=== PATIENT | female | born 1980 | race American Indian/Alaskan Native ===

== ENCOUNTER 2019-11-14 06:04 | Day surgery (SDC) | payer BC ==
--- NOTE | 2019-11-13 19:09 | Short Stay Summary ---
Short Stay Documentation Date of service: 11/14/19 - History H&P: obtained from office - Allergies and Medications Current Medications: Allergies No Known Allergies Allergy (Verified 11/10/19 17:05) Home Medications Medication Instructions Recorded Confirmed Last Taken Type Ibuprofen [Motrin] 600 mg PO Q8H PRN 11/10/19 11/10/19 Unknown History Multivit-Min/Iron/Folic/Lutein 1 each PO DAILY 11/10/19 11/10/19 Unknown History [Centrum Silver Women Tablet] Active Medications Acetaminophen (Tylenol) 1,000 mg PO PREOP ONE Stop: 11/14/19 06:01 Celecoxib (Celebrex) 200 mg PO PREOP NR Gabapentin (Gabapentin) 300 mg PO PREOP NR Lactated Ringer's (Lactated Ringers) 1,000 mls @ 100 mls/hr IV DIRECT BRI Stop: 11/14/19 23:59 Cefazolin Sodium 2 gm/ Sodium (Chloride) 100 mls @ 200 mls/hr IV PREOP ONE; Protocol Stop: 11/14/19 06:29 Midazolam HCl (Versed) 2 mg IV PREOP NR Stop: 11/14/19 23:59 - Physical exam General appearance: no acute distress HEENT: Atraumatic Lungs: Normal air movement Neurological: Normal speech - Brief post op/procedure progress note Date of procedure: 11/14/19 (dictation:[id number]) Pre-op diagnosis: back soft tissue mass Post-op diagnosis: same Procedure: excision of back soft tissue mass IVF 900cc EBL min Anesthesia: GETA Findings: 1 x 3 x 4cm lipomatous mass Surgeon: HIPOLITO LUNDBERG Estimated blood loss: minimal Pathology: list (lipomatous mass) Specimen disposition: to lab Condition: stable - Disposition Condition at discharge: Stable Disposition: DC-01 TO HOME OR SELFCARE Short Stay Discharge Plan Activity: advance as tolerated, avoid flexion Diet: regular Wound: open to air, keep clean and dry Special Instructions: no heavy lifting Additional Instructions: Post Operative Instructions Activity: No heavy lifting for next 1 week. Avoid bending. Wound: Keep clean and dry do not cover with gauze tape or band aid. May shower tomorrow. Pat dry the wound Diet : After surgery, start with a light diet. Consider starting with liquids. If you do well, you can advance to a regular diet as you feel comfortable. Apply an ice pack to the wound or wounds for 10-20 minutes at a time. Do this at least 4-5 times a day. You can do it more if he would like. Pain Medication Schedule for the first 2 days after surgery: Gabapentin 300mg twice a day Tylenol 500mg four times a day (every 6 hours) Celebrex 200mg twice a day After the first 2 days, then take alternating doses of ibuprofen and Tylenol as needed for pain. Take 600 mg of ibuprofen every 6 hours as needed. Take 500 mg of Tylenol every 6 hours as needed. You should alternate these 2 medicines. Make sure you take the ibuprofen with food. It is very important that you use the prescription narcotic pain medicine (hydrocodone) only for very severe pain. Do not take the narcotic medicine before you try using all the medications listed above. We will call you in a couple of days to see how youre doing. If you have any questions or concerns, always feel free to call the clinic ([phone]) at any time. Follow up with: EDENILSON DEJESUS MD [Primary Care Provider] - 7 Days HIPOLITO LUNDBERG MD [Staff Physician] - 14 Days Forms: Outpatient Surgery DC Inst. Prescriptions: Celecoxib [celeBREX] 200 mg PO BID #4 capsule Gabapentin 300 mg PO BID #4 capsule HYDROcodone/APAP 5-325 [Harvey 5-325 mg TAB] 1 each PO Q6HR PRN #8 tablet PRN Reason: Pain , Severe (7-10)
[~2019-11-14 06:04] MED LIST: ACETAMINOPHEN 500 MG TAB PO ONE; CELECOXIB 200 MG CAP PO NR; GABAPENTIN 300 MG CAP PO NR; LACTATED RINGERS 1,000 ML IV SCH; MIDAZOLAM 2 MG/2 ML INJ IV NR
[2019-11-14] MEDS ORDERED: BACTERIOSTATIC SODIUM CHLORIDE 0.9% 30 ML VIAL INFILTRATI ONE (06:12)
--- NOTE | 2019-11-14 07:21 | Anesthesia Day of Surgery ---
Anesthesia Day of Surgery - Day of Surgery Patient Examined: Yes Patient H&P Reviewed: Yes Patient is NPO: Yes
--- NOTE | 2019-11-14 07:21 | Anesthesia Consultation ---
Anesthesia Consult and Med Hx Date of service: 11/14/19 - Airway Anesthetic Teeth Evaluation: Good ROM Head & Neck: Adequate Mental/Hyoid Distance: Adequate Mallampati Class: Class II Intubation Access Assessment: Good - Pulmonary Exam CTA: Yes - Cardiac Exam Cardiac Exam: RRR - Pre-Operative Health Status ASA Pre-Surgery Classification: ASA1 Proposed Anesthetic Plan: General - Pulmonary Hx Smoking: No Hx Sleep Apnea: No (NINA PRE SCREEN NEGATIVE) - Cardiovascular System Hx Hypertension: No - Hematic Hx Anemia: No - Other Systems Hx Cancer: No
[2019-11-14] MEDS ORDERED: fentaNYL 100 MCG/2 ML INJ IV PRN (07:28)
[2019-11-14] MEDS ORDERED: ONDANSETRON 4 MG/2 ML INJ IV PRN (07:28)
[2019-11-14] MEDS ORDERED: SUCCINYLCHOLINE CHLORIDE 200 MG/10 ML INJ MDV ONE (07:28)
[2019-11-14] MEDS ORDERED: propofoL 200 MG/20 ML VIAL IV ONE (07:29)
[2019-11-14] MEDS ORDERED: fentaNYL 100 MCG/2 ML INJ ONE (07:29)
[2019-11-14] MEDS ORDERED: BUPIVACAINE-EPINEPHRINE/PF 0.5%-1:200,000 (30 ML) VIAL INFILTRATI ONE ×2 (07:30→08:07)
[2019-11-14] MEDS ORDERED: ceFAZolin/Water 2 GM/20 ML 2 GM/20 ML SYRINGE IV NR (07:30)
[2019-11-14] MEDS ORDERED: LIDOCAINE (1%) 10 MG/1 ML VIAL 20 ML MDV ONE (07:30)
[2019-11-14] MEDS ORDERED: SODIUM CHLORIDE 0.9% IRR 1,500 ML BOTTLE IR ONE (08:07)
[2019-11-14] MEDS ORDERED: LIDOCAINE (1%) 10 MG/1 ML VIAL 20 ML MDV INFILTRATI ONE (08:07)
[2019-11-14] MEDS ORDERED: ONDANSETRON 4 MG/2 ML INJ ONE (08:18)
[2019-11-14] MEDS ORDERED: dexAMETHasone 20 MG/5 ML VIAL ONE (08:18)
[2019-11-14] MEDS ORDERED: KETOROLAC 30 MG/1 ML INJ ONE (08:30)
[2019-11-14 10:15] VITALS: BP 124/78
--- NOTE | 2019-11-14 10:34 | Post Anesthesia Evaluation ---
- Post Anesthesia Evaluation Patient Participated: Yes Airway Patent: Yes Stable Respiratory Function: Yes Nausea/Vomiting: No Temp > 96.8F: Yes Pain Manageable: Yes Adequeate Hydration: Yes Anesthesia Complications: No
--- NOTE | 2019-11-14 13:25 | Operative Report ---
PREOPERATIVE DIAGNOSIS: Back soft tissue mass. POSTOPERATIVE DIAGNOSIS: Back soft tissue mass. PROCEDURE: Excision of back soft tissue mass. ATTENDING PHYSICIAN: Caroline De La Rosa MD ANESTHESIA: General. ESTIMATED BLOOD LOSS: Minimal. FLUIDS: 900 mL. FINDINGS: 1 x 3 x 4 cm lipomatous mass in the low back. No abnormal surrounding tissue. SPECIMENS: Above-mentioned mass. DRAINS: None. COMPLICATIONS: None. DISPOSITION: Stable, transferred to Recovery Room. INDICATIONS: This is a 39-year-old female who presented to the office with complaints of a low back mass that had been increasing in size over the years. The patient is concerned about the increase in size. The patient is assessed to be in need for excision. Procedure, risks, benefits were explained to the patient. Risks include but were not limited to infection, bleeding, pain, injury to surrounding structures, possible need for further procedures in the future. The patient understood and consented. OPERATIVE NOTE: The patient was brought to the operating room and placed on the table in supine position. After adequate general anesthesia was established, the patient was placed in the prone position. All pressure points were padded. Sterile prep and drape was done. SCDs were in place. Antibiotics have been given. Time-out was called. I began by marking out our planned incision along the lines of skin tension. Local anesthetic was injected. Skin was incised. We dissected down through the initial top layer of subcutaneous tissue to the mass. The mass was dissected from the surrounding tissue. It was within the subcutaneous space. There was no involvement of the underlying fascia. Mass was measured and passed off table in sterile fashion. Hemostasis was achieved with electrocautery. Additional local was injected. Deep layer of tissue was closed with interrupted 3-0 Vicryl sutures. Skin was closed with a running 4-0 Monocryl subcuticular stitch. Skin was cleaned and dried. Dermabond was placed. The patient tolerated the procedure well. There were no complications. All counts were correct at the end of the case. JOB# [id number] LISANDRO/TERRY
== END 2019-11-14 06:05 | disposition home or self-care (01) ==
LOC: OR 06:04
PROVIDERS: ATTEND Surgery
DX: D17.1 Benign lipomatous neoplasm of skin and subcutaneous tissue of trunk (principal); M79.89 Other specified soft tissue disorders; Z11.59 Encounter for screening for other viral diseases; Z79.899 Other long term (current) drug therapy; Z90.721 Acquired absence of ovaries, unilateral
CPT/HCPCS: 21931; 81025; 88304; J0330; J0690; J1100; J1885; J2250; J2405; J2704; J3010; J7120; U0003; 88307

== ENCOUNTER 2020-06-26 16:50 | Emergency (ER) | payer BC ==
[2020-06-26 16:57] VITALS: BP 148/88
--- NOTE | 2020-06-26 17:42 | Emergency Department Report ---
ED Head Trauma HPI - General Chief complaint: Head Injury Stated complaint: HEAD INJURY/WORK INJURY Source: patient Mode of arrival: Ambulatory Limitations: No Limitations - History of Present Illness Initial comments: 40-year-old female presents to the ER today for evaluation for head injury. Patient states that she works at [employer], and the Plexiglas that separates the registers fell over and struck her on the right side of her head. She states that this occurred today around 4 PM. She states that she felt dazed but did not lose consciousness. She complains of diffuse head pressure. She denies any neck pain. She denies any nausea or vomiting. She reports no focal weakness, numbness, or tingling. She is not on any blood thinners. She has not taken anything for pain since the incident occurred. She reports no other symptoms at this time. MD Complaint: head injury -: Sudden - Related Data Home Medications Medication Instructions Recorded Confirmed Last Taken Multivit-Min/Iron/Folic/Lutein 1 each PO DAILY 11/10/19 11/14/19 11/12/19 [Centrum Silver Women Tablet] Previous Rx's Medication Instructions Recorded Last Taken Type Celecoxib [celeBREX] 200 mg PO BID #4 capsule 11/14/19 Unknown Rx Gabapentin 300 mg PO BID #4 capsule 11/14/19 Unknown Rx Naproxen [EC-Naprosyn] 500 mg PO Q12HR PRN #20 tablet. 06/26/20 Unknown Rx Allergies/Adverse reactions: Allergies Allergy/AdvReac Type Severity Reaction Status Date / Time No Known Allergies Allergy Verified 11/10/19 17:05 ED Review of Systems ROS: Stated complaint: HEAD INJURY/WORK INJURY Other details as noted in HPI Comment: All other systems reviewed and negative Eyes: denies: eye pain, eye discharge, vision change ENT: denies: ear pain, throat pain, dental pain, hearing loss, epistaxis, congestion Respiratory: denies: cough, orthopnea, shortness of breath, SOB with exertion, SOB at rest, stridor, wheezing Cardiovascular: denies: chest pain, palpitations, dyspnea on exertion, edema, syncope, paroxysmal nocturnal dyspnea Gastrointestinal: denies: abdominal pain, nausea, vomiting, diarrhea, constipation, hematemesis, melena, hematochezia Genitourinary: denies: urgency, dysuria, frequency, hematuria, discharge Neurological: headache, other (Positive head injury, negative LOC). denies: weakness, numbness, paresthesias, confusion, abnormal gait, vertigo Psychiatric: denies: anxiety, depression Hematological/Lymphatic: denies: easy bleeding, easy bruising ED Past Medical Hx - Past Medical History Hx Hypertension: No Hx HIV: No - Social History Smoking Status: Never Smoker - Medications Home Medications: Home Medications Medication Instructions Recorded Confirmed Last Taken Type Multivit-Min/Iron/Folic/Lutein 1 each PO DAILY 11/10/19 11/14/19 11/12/19 History [Centrum Silver Women Tablet] Celecoxib [celeBREX] 200 mg PO BID #4 capsule 11/14/19 Unknown Rx Gabapentin 300 mg PO BID #4 capsule 11/14/19 Unknown Rx Naproxen [EC-Naprosyn] 500 mg PO Q12HR PRN #20 tablet. 06/26/20 Unknown Rx ED Physical Exam - General Limitations: No Limitations General appearance: alert, in no apparent distress - Head Head exam: Present: normocephalic, other (Mild swelling, and very superficial laceration noted on the right temporal area with tenderness to palpation. No active bleeding or deformity noted) - Eye Eye exam: Present: normal appearance, PERRL, EOMI Pupils: Present: normal accommodation - ENT ENT exam: Present: normal exam, mucous membranes moist, TM's normal bilaterally - Neck Neck exam: Present: normal inspection, full ROM. Absent: tenderness - Respiratory Respiratory exam: Present: respiratory distress. Absent: normal lung sounds bilaterally - Cardiovascular Cardiovascular Exam: Present: regular rate, normal rhythm, normal heart sounds - Neurological Exam Neurological exam: Present: alert, oriented X3, CN II-XII intact, normal gait ED Course Vital Signs 06/26/20 16:55 Temperature 98.8 F Pulse Rate 73 Respiratory 18 Rate Blood Pressure 148/88 O2 Sat by Pulse 100 Oximetry - Radiology Data Radiology results: report reviewed Patient: JONES SAMUELS MR#: [id number] : 1980 Acct:[id number] Age/Sex: 40 / F ADM Date: 06/26/20 Loc: ED Attending Dr: Ordering Physician: HILLARY GRIFFITH Date of Service: 06/26/20 Procedure(s): CT head/brain wo con Accession Number(s): [id number] cc: HILLARY GRIFFITH CT head/brain wo con INDICATION / CLINICAL INFORMATION: 40 years Female; trauma. TECHNIQUE: Routine CT head without contrast. All CT scans at this location are performed using CT dose reduction for ALARA by means of automated exposure control. COMPARISON: None. FINDINGS: BRAIN / INTRACRANIAL CONTENTS: No acute hemorrhage, mass effect, midline shift, hydrocephalus, or acute, large territorial infarct. No signs of significant atrophy or chronic infarct. No significant white matter abnormality seen. CRANIOCERVICAL JUNCTION: No significant abnormality. ORBITS: No significant abnormality of visualized orbits. SINUSES / MASTOIDS: Minimal mucosal thickening in the ethmoids. ADDITIONAL FINDINGS: None. IMPRESSION: 1. No focal mass, hemorrhage, hydrocephalus, or acute, large territorial infarct. Signer Name: Joseph Wade MD, III Signed: 06/26/2020 6:31 PM Workstation Name: [id number] Transcribed By: HR Dictated By: Joseph Wade MD Electronically Authenticated By: Joseph Wade MD Signed Date/Time: 06/26/201830 DD/ 29 TD/TT: - Medical Decision Making CT head shows nothing acute. Patient is awake, alert and oriented x3. She is neurologically intact. She remembers the incident fully. She has a normal gait in the ER. Discussed CT results with patient. No indication for further testing, admission or emergent consult at this time. Discussed diagnosis and treatment plan with patient. She expressed understanding of instructions and agree with plan. Patient stable at time of discharge. Critical care attestation.: If time is entered above; I have spent that time in minutes in the direct care of this critically ill patient, excluding procedure time. ED Disposition Clinical Impression: Head injury, closed, without LOC, Forehead contusion Disposition: DC-01 TO HOME OR SELFCARE Is pt being admited?: No Does the pt Need Aspirin: No Condition: Stable Instructions: Facial or Scalp Contusion, [id number] Additional Instructions: Take the Naproxen as prescribed for pain. Follow up with PCP in 1 week. Return to ED if your symptoms worsens or changes in any way. Prescriptions: Naproxen [EC-Naprosyn] 500 mg PO Q12HR PRN #20 tablet.dr ROSALES Reason: Pain Referrals: NICANOR FLOWERS MD [Staff Physician] - 7-10 days Forms: Work/School Release Form(ED) Time of Disposition: 19:10
[2020-06-26] MEDS ORDERED: ACETAMINOPHEN 325 MG TAB PO ONE (17:45)
--- NOTE | 2020-06-26 18:35 | Cat Scan Report ---
CT head/brain wo con INDICATION / CLINICAL INFORMATION: 40 years Female; trauma. TECHNIQUE: Routine CT head without contrast. All CT scans at this location are performed using CT dos e reduction for ALARA by means of automated exposure control. COMPARISON: None. FINDINGS: BRAIN / INTRACRANIAL CONTENTS: No acute hemorrhage, mass effect, midline shift, hydrocephalus, or acu te, large territorial infarct. No signs of significant atrophy or chronic infarct. No significant whi te matter abnormality seen. CRANIOCERVICAL JUNCTION: No significant abnormality. ORBITS: No significant abnormality of visualized orbits. SINUSES / MASTOIDS: Minimal mucosal thickening in the ethmoids. ADDITIONAL FINDINGS: None. IMPRESSION: 1. No focal mass, hemorrhage, hydrocephalus, or acute, large territorial infarct. Signer Name: Joseph Wade MD, III Signed: 06/26/2020 6:31 PM Workstation Name: [id number]
== END 2020-06-26 20:00 | disposition home or self-care (01) ==
LOC: ED 16:50
DX: S00.83XA Contusion of other part of head, initial encounter (principal); S09.90XA Unspecified injury of head, initial encounter; Z79.899 Other long term (current) drug therapy; W18.30XA Fall on same level, unspecified, initial encounter; Y93.89 Activity, other specified; Y92.89 Other specified places as the place of occurrence of the external cause; Y99.0 Civilian activity done for income or pay
CPT/HCPCS: 70450

== ENCOUNTER 2021-02-09 14:53 | Outpatient (CLI) | payer BC ==
[2021-02-09 15:31] LABS: Hematocrit 43.5 % (30.3-42.9); Hemoglobin 13.6 gm/dl (10.1-14.3); Mean Corpuscular HGB Conc 31 % (30-34); Mean Corpuscular Volume 94 fl (79-97); Platelet Count 282 K/mm3 (140-440); Red Blood Count 4.64 M/mm3 (3.65-5.03)
[2021-02-09 15:45] LABS: Alanine Aminotransferase 9 units/L (7-56); Albumin 4.1 g/dL (3.9-5); Blood Urea Nitrogen 9 mg/dL (7-17); Calcium 8.8 mg/dL (8.4-10.2); Chol/HDL Ratio 3.63 %; HDL Cholesterol 46 mg/dL (40-59); Hemolysis Index 14; LDL Cholesterol,Direct 100 mg/dL (50-130)
[2021-02-09 15:51] LABS: BUN/Creatinine Ratio 15
[2021-02-09 18:50] LABS: Hepatitis C Virus Antibody Non-Reactive (NonReactive)
== END 2021-02-09 14:54 | disposition home or self-care (01) ==
LOC: LAB 14:53
PROVIDERS: ATTEND Obstetrics & Gynecology
DX: Z11.3 Encounter for screening for infections with a predominantly sexual mode of transmission (principal); Z13.1 Encounter for screening for diabetes mellitus; Z13.21 Encounter for screening for nutritional disorder; Z13.220 Encounter for screening for lipoid disorders
CPT/HCPCS: 36415; 80053; 80061; 82306; 83036; 84443; 85027; 86592; 86689; 86803; 87350; 87529

== ENCOUNTER 2021-02-15 11:05 | Outpatient (CLI) | payer BC ==
--- NOTE | 2021-02-16 06:42 | Ultrasound Report ---
ULTRASOUND PELVIS INDICATION / CLINICAL INFORMATION: PELVIC MASS. TECHNIQUE: Transabdominal. Duplex Color Doppler used: Yes. COMPARISON: None available FINDINGS: UTERUS: The uterus measures 7.1 x 2.7 x 5.8 cm. Uterus is heterogeneous with multiple hypoechoic ricardo metrial masses, most compatible with fibroids. The endometrial stripe measures 0.6 cm. RIGHT ADNEXA: Large cystic structure is present within the right ovary, measuring 8.9 cm. There are d iffuse homogeneous groundglass echoes throughout this structure. Normal right ovarian Doppler flow is present. LEFT ADNEXA: Not visualized, reported to be surgically absent. URINARY BLADDER: No significant abnormality. FREE FLUID: None. ADDITIONAL FINDINGS: None. IMPRESSION: 1. Fibroid uterus. 2. 8.9 cm cystic structure with diffuse homogeneous groundglass echoes. This may reflect an endometri aguilar or complex cyst. Recommend nonemergent gynecology consultation for further evaluation. 3. No evidence of right ovarian torsion. Left ovary is absent. Signer Name: Abhishek Navarro MD Signed: 02/16/2021 6:37 AM Workstation Name: [id number]
== END 2021-02-15 11:06 | disposition home or self-care (01) ==
LOC: US 11:05
PROVIDERS: ATTEND Obstetrics & Gynecology
DX: N80.3 Endometriosis of pelvic peritoneum (principal); D25.9 Leiomyoma of uterus, unspecified; R19.00 Intra-abdominal and pelvic swelling, mass and lump, unspecified site
CPT/HCPCS: 76830; 76856

== ENCOUNTER 2021-03-14 10:35 | Outpatient (CLI) | payer BC ==
[2021-03-14 11:32] LABS: Blood Urea Nitrogen 12 mg/dL (7-17); Hemolysis Index 7
[2021-03-14 11:33] LABS: BUN/Creatinine Ratio 17
--- NOTE | 2021-03-14 16:42 | Cat Scan Report ---
CT abdomen pelvis w con INDICATION: PELVIC PERINEAL PAIN omni 300 100 ml. COMPARISON: Ultrasound pelvis 02/15/2001 TECHNIQUE: Abdominal and pelvic CT exam performed. All CT scans at this location are performed using CT dose reduction for ALARA by means of automated exposure control. FINDINGS: CT ABDOMEN and PELVIS: Lung Bases: No significant abnormality. Liver: No significant abnormality. Biliary: No significant abnormality. Spleen: No significant abnormality. Pancreas: No significant abnormality. Adrenals: No significant abnormality. Kidneys: No significant abnormality. Lymphatics: No lymphadenopathy. Vasculature: No significant abnormality. Bowel: No significant abnormality. Pelvis: Large 9 cm homogeneous thin-walled right ovarian lesion with Hounsfield units of approximatel y 20. No septations. No consultations. Osseous Structures: No aggressive osseous lesion. Additional Findings: None IMPRESSION: 1. Persistent 9 cm homogeneous cystic right ovarian lesion, similar to prior ultrasound. Recommend fo llow-up pelvic MRI with IV contrast and/or surgical evaluation. * Reference: J Am Itzel Radiol 2013;10:675-681 Signer Name: Justin Barbosa MD Signed: 03/14/2021 4:38 PM Workstation Name: [id number]
== END 2021-03-14 10:36 | disposition home or self-care (01) ==
LOC: CT 10:35
PROVIDERS: ATTEND Obstetrics & Gynecology
DX: N83.201 Unspecified ovarian cyst, right side (principal); K62.89 Other specified diseases of anus and rectum; R19.03 Right lower quadrant abdominal swelling, mass and lump
CPT/HCPCS: 36415; 74177; 80048; 84702; Q9967

== ENCOUNTER 2021-03-30 12:36 | Outpatient (CLI) | payer BC ==
--- NOTE | 2021-03-30 16:14 | Mammography Report ---
DIGITAL SCREENING MAMMOGRAM WITH CAD, 03/30/2021 CLINICAL INFORMATION / INDICATION: Routine screening mammography. SCREENING MAMMOGRAM TECHNIQUE: Digital bilateral 2D mammography was obtained in the craniocaudal and mediolateral obliqu e projections. This examination was interpreted with the benefit of Computer-Aided Detection analysis . COMPARISON: None FINDINGS: Breast Density: The breasts are heterogeneously dense, which may obscure small masses. No dominant mass, suspicious calcifications, or architectural distortion in either breast. IMPRESSION: No mammographic evidence of malignancy. Follow up recommendation: Routine yearly BI-RADS Category 1: NEGATIVE A "normal" or negative report should not discourage follow up or biopsy of a clinically significant f inding. A written summary of these findings will be mailed to the patient. The patient will be entered into a mammography reporting system which will generate a reminder letter for the patient's next appointmen t at the appropriate interval. The [employer] recommends yearly mammograms starting at age 40 and continuing as l coco as a woman is in good health. Breast MRI is recommended for women with an approximate 20-25% or greater lifetime risk of breast cancer, including women with a strong family history of breast or ova marta cancer or who have been treated for Hodgkin's disease. Signer Name: Magdi Hansen DO Signed: 03/30/2021 4:10 PM Workstation Name: [id number]
== END 2021-03-30 12:37 | disposition home or self-care (01) ==
LOC: MAMMO 12:36
PROVIDERS: ATTEND Obstetrics & Gynecology
DX: Z12.31 Encounter for screening mammogram for malignant neoplasm of breast (principal)
CPT/HCPCS: 77067

== ENCOUNTER 2021-09-22 14:12 | Outpatient (CLI) | payer BC ==
--- NOTE | 2021-09-22 17:12 | Ultrasound Report ---
ULTRASOUND PELVIS INDICATION / CLINICAL INFORMATION: ENDOMETRIOSIS; ABD PAIN. TECHNIQUE: Transabdominal and Transvaginal. Duplex Color Doppler used: Yes. COMPARISON: CT abdomen/pelvis 03/14/2021 and pelvic ultrasound 02/15/2021. FINDINGS: UTERUS: - Appearance: Diffusely heterogeneous. - Size (cm): 6.7 x 4.6 x 3.6 cm. - Endometrial Complex (if present): No significant abnormality.. Thickness in cm (if measured) = 0 - Mass or cyst: Small uterine fibroids appear stable from previous exam. - Additional findings: None. RIGHT ADNEXA: The right ovary measures 7.0 x 5.9 x 6.1 cm. Multiple complex cysts are now visualized in the ovary measuring 3.5 x 3.4 x 3.3 cm and 4.1 x 3.8 x 3.4 cm respectively. Minimally complicated ovarian cyst measuring 3.0 cm. Large cystic structure measuring 8.9 cm seen previously is not identif ied. Normal color Doppler blood flow. LEFT ADNEXA: Solid structure in the left adnexa with the appearance of the left ovary is visualized m easuring 2.1 x 1.3 x 1.1 cm. Simple cyst measuring 1.6 cm. Normal color Doppler blood flow. URINARY BLADDER: No significant abnormality. FREE FLUID: None. ADDITIONAL FINDINGS: None. IMPRESSION: 1. Multiple complex right ovarian cysts measuring up to 4.1 cm. Differential diagnosis includes hemor rhagic ovarian cysts versus endometriomas. Short-term sonographic follow-up is recommended in 6-12 we eks 2. Small uterine fibroids. 3. A structure appearing to be the left ovary is identified with a simple internal cyst measuring 1.6 cm. Scribed by: Evangelina Acevedo RDMS, BETTY, MONTSE Scribed: 09/22/2021 3:40 PM I have reviewed the images, agree with this report, and edited this report as needed. Signer Name: Josr Preciado MD Signed: 09/22/2021 5:07 PM Workstation Name: [id number]
== END 2021-09-22 14:13 | disposition home or self-care (01) ==
LOC: US 14:12
PROVIDERS: ATTEND Family Medicine
DX: N83.202 Unspecified ovarian cyst, left side (principal); N83.201 Unspecified ovarian cyst, right side
CPT/HCPCS: 76830; 76856

== ENCOUNTER 2021-10-10 16:00 | Emergency (ER) | payer BC ==
[2021-10-10 17:04] VITALS: BP 151/93
[2021-10-10 19:03] LABS: Basophils % (Auto) 0.6 % (0.0-1.8); Eosinophils # (Auto) 0.5 K/mm3 (0.0-0.4); Eosinophils % (Auto) 6.5 % (0.0-4.3); Hematocrit 39.7 % (30.3-42.9); Hemoglobin 13.2 gm/dl (10.1-14.3); Lymphocytes # (Auto) 2.9 K/mm3 (1.2-5.4); Lymphocytes % (Auto) 35.1 % (13.4-35.0); Mean Corpuscular HGB Conc 33 % (30-34); Mean Corpuscular Volume 88 fl (79-97); Monocytes # (Auto) 0.4 K/mm3 (0.0-0.8); Monocytes % (Auto) 5.2 % (0.0-7.3); Platelet Count 264 K/mm3 (140-440); Red Cell Distribution Width 13.5 % (13.2-15.2)
[2021-10-10 19:43] LABS: Alanine Aminotransferase 23 units/L (7-56); Albumin 4.3 g/dL (3.9-5); BUN/Creatinine Ratio 11; Blood Urea Nitrogen 8 mg/dL (7-17); Calcium 9.9 mg/dL (8.4-10.2); Hemolysis Index 4
[2021-10-11] MEDS ORDERED: SODIUM CHLORIDE 0.9% 1000 ML 1,000 ML IV ONE (01:27)
[2021-10-11] MEDS ORDERED: dexAMETHasone 20 MG/5 ML VIAL IV ONE (01:27)
[2021-10-11] MEDS ORDERED: ACETAMINOPHEN 500 MG TAB PO ONE (01:27)
[2021-10-11] MEDS ORDERED: METOCLOPRAMIDE 10 MG/2 ML INJ IV ONE (01:27)
[2021-10-11] MEDS ORDERED: diphenhydrAMINE 50 MG/ML VIAL IV ONE (01:27)
--- NOTE | 2021-10-11 01:49 | Emergency Department Report ---
ED Headache HPI - General Chief Complaint: Weakness Stated Complaint: HEADACHE/DIZZYNESS Time Seen by Provider: 10/11/21 01:26 - History of Present Illness Initial Comments: Patient 41-year-old female who presents with frontal headache x1 month. Patient states pain is 5/10 sharp pressure. Pain is exacerbated by activity and mov ement. Pain is relieved by nothing tried. Patient denies sinus pain or drainage. No ear pain or throat pain fever noted in triage today patient denies fever at home. Patient states similar headaches in the past. However this headache is lingering longer than others. Patient states associated i ntermittent photophobia and nausea. Symptoms are overall improved with ibuprofen taken [id number]. Patient has other history of endometriosis. Last menstrual cycle was 1 week ago. Allergies/Adverse Reactions: Allergies No Known Allergies Allergy (Verified 11/10/19 17:05) Home Medications: Ambulatory Orders Multivit-Min/Iron/Folic/Lutein [Centrum Silver Women Tablet] 1 each PO DAILY 11/10/19 Celecoxib [celeBREX] 200 mg PO BID #4 capsule 11/14/19 Gabapentin 300 mg PO BID #4 capsule 11/14/19 Naproxen [EC-Naprosyn] 500 mg PO Q12HR PRN #20 tablet. 06/26/20 Acetaminophen [Non-Aspirin Extra Strength] 1,000 mg PO Q6H PRN #60 tab 10/11/21 Metoclopramide [Reglan] 10 mg PO Q6H PRN #30 tablet 10/11/21 diphenhydrAMINE [Benadryl CAP] 25 mg PO Q6HR PRN #30 capsule 10/11/21 ED Review of Systems ROS: Stated complaint: HEADACHE/DIZZYNESS Other details as noted in HPI Constitutional: malaise Eyes: denies: eye pain, eye discharge, vision change ENT: denies: ear pain, throat pain Respiratory: denies: cough, shortness of breath, wheezing Cardiovascular: denies: chest pain, palpitations Endocrine: no symptoms reported Gastrointestinal: nausea. denies: abdominal pain, vomiting, diarrhea Genitourinary: denies: urgency, dysuria, discharge Musculoskeletal: denies: back pain, joint swelling, arthralgia, myalgia Skin: denies: rash, lesions Neurological: headache. denies: weakness, numbness, paresthesias, confusion, vertigo Psychiatric: denies: anxiety, depression Hematological/Lymphatic: denies: easy bleeding, easy bruising ED Past Medical Hx - Past Medical History Hx Hypertension: No Hx HIV: No Additional medical history: endometriosis - Social History Smoking Status: Never Smoker - Medications Home Medications: Home Medications Medication Instructions Recorded Confirmed Last Taken Type Multivit-Min/Iron/Folic/Lutein 1 each PO DAILY 11/10/19 11/14/19 11/12/19 History [Centrum Silver Women Tablet] Celecoxib [celeBREX] 200 mg PO BID #4 capsule 11/14/19 Unknown Rx Gabapentin 300 mg PO BID #4 capsule 11/14/19 Unknown Rx Naproxen [EC-Naprosyn] 500 mg PO Q12HR PRN #20 tablet. 06/26/20 Unknown Rx Acetaminophen [Non-Aspirin Extra 1,000 mg PO Q6H PRN #60 tab 10/11/21 Unknown Rx Strength] Metoclopramide [Reglan] 10 mg PO Q6H PRN #30 tablet 10/11/21 Unknown Rx diphenhydrAMINE [Benadryl CAP] 25 mg PO Q6HR PRN #30 capsule 10/11/21 Unknown Rx ED Physical Exam - General Limitations: No Limitations General appearance: alert, in no apparent distress - Head Head exam: Present: normocephalic, normal inspection - Eye Eye exam: Present: PERRL, EOMI. Absent: conjunctival injection, nystagmus Pupils: Present: normal accommodation - ENT ENT exam: Present: normal orophraynx, mucous membranes moist, TM's normal bilaterally, normal external ear exam - Neck Neck exam: Present: normal inspection, full ROM. Absent: tenderness, meningismus, lymphadenopathy, thyromegaly - Respiratory Respiratory exam: Present: normal lung sounds bilaterally. Absent: respiratory distress, wheezes, stridor - Cardiovascular Cardiovascular Exam: Present: regular rate, normal rhythm, normal heart sounds. Absent: systolic murmur, diastolic murmur, rubs, gallop - GI/Abdominal GI/Abdominal exam: Present: soft, normal bowel sounds. Absent: distended, tenderness - Rectal Rectal exam: Present: deferred - Extremities Exam Extremities exam: Present: normal inspection, full ROM, normal capillary refill. Absent: tenderness - Back Exam Back exam: Present: normal inspection, full ROM. Absent: CVA tenderness (R), CVA tenderness (L), paraspinal tenderness, vertebral tenderness - Neurological Exam Neurological exam: Present: alert, oriented X3, CN II-XII intact, normal gait, reflexes normal. Absent: motor sensory deficit - Expanded Neurological Exam Expanded Patient oriented to: Present: person, place, time Speech: Present: fluid speech Cranial nerves: EOM's Intact: Normal, Gag Reflex: Normal, Tongue Deviation: Normal, Nystagmus: Normal, Facial Sensation: Normal Motor strength exam: RUE: 5, LUE: 5, RLE: 5, LLE: 5 Best Eye Response (Thayer): (4) open spontaneously Best Motor Response (Thayer): (6) obeys commands Best Verbal Response (Thayer): (5) oriented Thayer Total: 15 - Psychiatric Psychiatric exam: Present: normal affect, normal mood - Skin Skin exam: Present: warm, dry, intact, normal color. Absent: rash ED Course Vital Signs 10/10/21 10/11/21 17:02 02:49 Temperature 98.1 F Pulse Rate 79 Respiratory 20 16 Rate Blood Pressure 151/93 O2 Sat by Pulse 100 Oximetry ED Medical Decision Making - Lab Data Result diagrams: 10/10/21 18:16 10/10/21 18:16 Labs 10/10/21 10/10/21 10/11/21 18:16 18:16 01:17 WBC 8.4 RBC 4.50 Hgb 13.2 Hct 39.7 MCV 88 MCH 29 MCHC 33 RDW 13.5 Plt Count 264 Lymph % (Auto) 35.1 H Sharp % (Auto) 5.2 Eos % (Auto) 6.5 H Baso % (Auto) 0.6 Lymph # (Auto) 2.9 Sharp # (Auto) 0.4 Eos # (Auto) 0.5 H Baso # (Auto) 0.0 Seg Neutrophils % 52.6 Seg Neutrophils # 4.4 Sodium 143 Potassium 5.0 Chloride 105.9 Carbon Dioxide 25 Anion Gap 17 BUN 8 Creatinine 0.7 Estimated GFR > 60 BUN/Creatinine Ratio 11 Glucose 83 Calcium 9.9 Total Bilirubin 0.40 AST 26 ALT 23 Alkaline Phosphatase 90 Troponin T < 0.010 Total Protein 7.8 Albumin 4.3 Albumin/Globulin Ratio 1.2 Lipase 36 Urine Color Yellow Urine Turbidity Clear Urine pH 5.0 Ur Specific Bailey 1.035 H Urine Protein <15 mg/dl Urine Glucose (UA) Negative Urine Ketones Negative Urine Blood Negative Urine Nitrite Negative Ur Reducing Substances Not Reportable Urine Bilirubin Negative Urine Ictotest Not Reportable Urine Urobilinogen < 2.0 Ur Leukocyte Esterase Negative Urine WBC (Auto) 2.0 Urine RBC (Auto) 2.0 U Epithel Cells (Auto) 3.0 Urine Mucus 2+ Urine HCG, Qual Negative - EKG Data EKG shows normal: sinus rhythm, axis, intervals, QRS complexes, ST-T waves Rate: normal - EKG Data Interpretation: normal EKG (Normal sinus rhythm no ST elevated MA interpreted by ED attending.) - Radiology Data Radiology results: report reviewed, image reviewed CT HEAD WITHOUT CONTRAST INDICATION / CLINICAL INFORMATION: headache x 1 month. TECHNIQUE: CT head was performed without administration of intravenous contrast. All CT scans at this location are performed using CT dose reduction for ALARA by means of automated exposure control. COMPARISON: CT head 06/26/2020 FINDINGS: CEREBRAL HEMISPHERES: There is no evidence of large territorial infarction or significant abnormality of menon-white matter differentiation. Ventricles within normal limits. No midline shift. Basal cisterns patent. HEMORRHAGE: None. CEREBELLUM / BRAINSTEM: No significant abnormality. ORBITS: No significant abnormality. SOFT TISSUES: No significant abnormality. SKULL: No significant abnormality. PARANASAL SINUSES / MASTOID AIR CELLS: Normal as visualized. ADDITIONAL FINDINGS: None. IMPRESSION: 1. No acute intracranial abnormality. Signer Name: Manda Ziegler II, MD Signed: 10/11/2021 2:18 AM Workstation Name: [id number] Transcribed By: EDGAR Dictated By: MANDA ZIEGLER II, MD Electronically Authenticated By: MANDA ZIEGLER II, MD Signed Date/Time: 10/11/21217 DD/ 6 TD/TT: - Medical Decision Making CT head normal no mass no bleed no soft tissue abnormality, EKG normal sinus rhythm no ST elevated MA, labs noted normal. Diagnosis cluster headache. Symptoms are improved with medications given in ED plan DC to home, take medication as prescribed, follow-up with your primary care doctor in 2 to 3 days. Return to emergency department should symptoms worsen. Patient verbalized agreement understanding with discharge plan. Patient DC'd home in stable condition at this time. Critical care attestation.: If time is entered above; I have spent that time in minutes in the direct care of this critically ill patient, excluding procedure time. ED Disposition Clinical Impression: Cluster headache Qualifiers: Headache chronicity pattern: unspecified pattern Intractability: not intractable Qualified Code(s): G44.009 - Cluster headache syndrome, unspecified, not intractable Disposition: 01 HOME / SELF CARE / HOMELESS Is pt being admited?: No Does the pt Need Aspirin: No Condition: Stable Instructions: Cluster Headache, [id number] Additional Instructions: Take medications as prescribed, follow-up with your doctor in 2 to 3 days. Return to emergency department should symptoms worsen. Prescriptions: diphenhydrAMINE [Benadryl CAP] 25 mg PO Q6HR PRN #30 capsule PRN Reason: Headache Acetaminophen [Non-Aspirin Extra Strength] 1,000 mg PO Q6H PRN #60 tab PRN Reason: Headache Metoclopramide [Reglan] 10 mg PO Q6H PRN #30 tablet PRN Reason: headache Referrals: NICANOR FLOWERS MD [Primary Care Provider] - 3-5 Days Forms: Work/School Release Form(ED) Time of Disposition: 03:32
[2021-10-11 02:20] LABS: HCG Qualitative,Urine Negative (Negative)
[2021-10-11 02:21] LABS: Mucus,Urine 2+ /HPF
--- NOTE | 2021-10-11 02:23 | Cat Scan Report ---
CT HEAD WITHOUT CONTRAST INDICATION / CLINICAL INFORMATION: headache x 1 month. TECHNIQUE: CT head was performed without administration of intravenous contrast. All CT scans at this location are performed using CT dose reduction for ALARA by means of automated exposure control. COMPARISON: CT head 06/26/2020 FINDINGS: CEREBRAL HEMISPHERES: There is no evidence of large territorial infarction or significant abnormality of menon-white matter differentiation. Ventricles within normal limits. No midline shift. Basal ciste rns patent. HEMORRHAGE: None. CEREBELLUM / BRAINSTEM: No significant abnormality. ORBITS: No significant abnormality. SOFT TISSUES: No significant abnormality. SKULL: No significant abnormality. PARANASAL SINUSES / MASTOID AIR CELLS: Normal as visualized. ADDITIONAL FINDINGS: None. IMPRESSION: 1. No acute intracranial abnormality. Signer Name: Miguel A Ziegler II, MD Signed: 10/11/2021 2:18 AM Workstation Name: [id number]
[2021-10-11 02:36] LABS: Bilirubin,Urine Negative (Negative); Blood,Urine Negative (Negative); Color,Urine Yellow (Yellow)
[2021-10-11 02:37] LABS: Protein,Urine <15 mg/dL mg/dL (Negative); Urobilinogen,Urine < 2.0 mg/dL (<2.0)
--- NOTE | 2021-10-11 18:57 | Electrocardiograph Report ---
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
== END 2021-10-11 04:16 | disposition home or self-care (01) ==
LOC: ED 16:00
DX: G44.009 Cluster headache syndrome, unspecified, not intractable (principal)
CPT/HCPCS: 36415; 70450; 80053; 81001; 81025; 83690; 84484; 85025; 93005; 96361; 96374; 96375; 99284; J1100; J1200; J2765; J7030; 96367